=== PATIENT | male | born 1945 | race Caucasian/White ===

== ENCOUNTER 2017-03-22 04:11 | Inpatient (IN) | payer MEDICARE, OTHER ==
[2017-03-22] VITALS (12 sets, daily range): BP systolic 98–129; BP diastolic 60–79; PULSE 50–130; RESP 18–20; TEMP 97.7–98.6; O2SAT 96–99
[~2017-03-22 04:11] MED LIST: ACID REFLUX MED; ASPI81 PO
[2017-03-22] MEDS ORDERED: SODIUM CHLORID 0.9% 500 ML INJ 500 ML IV ONE (04:30)
[2017-03-22] MEDS ORDERED: SODIUM CHLORIDE 0.9% FLUSH 5 ML FLUSH IV FLUSH PRN (04:45)
[2017-03-22] MEDS ORDERED: DILTIAZEM INJ 125 MG in SODIUM CHLORIDE 0.9% INJ 100 ML IV PRN (04:45)
[2017-03-22] MEDS ORDERED: ASPIRIN 81 MG CHEW TAB CHEW ONE (04:45)
[2017-03-22 04:54] LABS: BASOPHIL # 0.1 TH/MM3 (0-0.2); BASOPHIL % 0.7 % (0.0-2.0); EOSINOPHIL # 0.5 TH/MM3 (0-0.4); EOSINOPHIL % 6.7 % (0.0-4.0); HEMATOCRIT 43.8 % (39.0-51.0); HEMO FLAGS DIFF FINAL; LYMPH % 25.1 % (9.0-44.0); LYMPHOCYTE # 1.8 TH/MM3 (1.0-4.8); MEAN CELL VOLUME 90.6 FL (80.0-100.0); MEAN CORPUSCULAR HEMOGLOBIN 30.2 PG (27.0-34.0); MEAN CORPUSCULAR HGB CONC 33.3 % (32.0-36.0); MONO % 9.6 % (0.0-8.0); NEUT % 57.9 % (16.0-70.0); PLATELET COUNT 240 TH/MM3 (150-450); RED BLOOD COUNT 4.84 MIL/MM3 (4.50-5.90); RED CELL DISTRIBUTION WIDTH 13.4 % (11.6-17.2)
[2017-03-22 05:06] LABS: ANION GAP 9 MEQ/L (5-15); AST (GOT) 20 U/L (15-37); BICARBONATE 26.1 MEQ/L (21.0-32.0); BLOOD UREA NITROGEN 25 MG/DL (7-18); CHLORIDE 106 MEQ/L (98-107); GLOMERULAR FILTRATION RATE 83 ML/MIN (>89); POTASSIUM 3.2 MEQ/L (3.5-5.1); SODIUM (NA) 141 MEQ/L (136-145)
[2017-03-22 05:07] LABS: ALT (GPT) 23 U/L (12-78)
--- NOTE | 2017-03-22 05:13 | PD ---
HPI Chief Complaint: Respiratory Symptoms Time Seen by Provider: 04:21 Travel History International Travel<30 days: No Contact w/Intl Traveler<30days: No Traveled to known affect area: No History of Present Illness HPI The patient is a 72 year old male who presents to the [facility] emergency department with a history of awakening at 3 AM with palpitations, left jaw pain , and shortness of breath. The patient reports that he felt like his heart was racing. The patient reports that he normally takes a baby aspirin daily. When he awoke with this he did take his baby aspirin early. The patient denies having any prior history of or tarry artery disease, congestive heart failure, or irregular heartbeat. The patient reports that he has had a stress test done a few years ago which was reportedly unremarkable. The patient denies having any nausea associated with this. He denies having any diaphoresis. On ambulance services arrival the patient's heart rate was noted to be in the 170s , his blood pressure systolic was in the 80s. IV access was obtained and the patient was given an additional aspirin 81 mg along with Cardizem 20 mg IV. The patient's blood pressure improved to systolic of 120, heart rate went down into the 80s to 90s. The patient reported that the jaw pain was resolving. He reports that the shortness of breath has resolved. On review of systems, the patient denies having any recent fevers, fever, cough, congestion, neck pain, chest pain, abdominal pain, vomiting, diarrhea, new urinary symptoms, or neurologic symptoms. PFSH Past Medical History Narrative Medical The patient's past medical history is significant for acid reflux, history of prostate cancer, history of melanoma Blood Disorders: No Cancer: Yes (prostate) Cardiac Catheterization: No Cardiovascular Problems: No High Cholesterol: No Congestive Heart Failure: No Cerebrovascular Accident: Yes Diabetes: No Diminished Hearing: No Endocrine: No GERD: Yes Hypertension: Yes Immune Disorder: No Past Surgical History Narrative Surgical The patient's past surgical history is significant for prostatectomy, melanoma resection, shrapnel removal from his elbow. AICD: No Coronary Artery Bypass Graft: No Genitourinary Surgery: Yes Pacemaker: No Other Surgery: Yes (METAL REMOVED FROM ARM) Social History Alcohol Use: No Tobacco Use: No Substance Use: No Allergies-Medications (Allergen,Severity, Reaction): Coded Allergies: Sulfa (Sulfonamide Antibiotics) (Unverified Allergy, Severe, 03/22/17) UNKNOWN REACTION penicillin G (Unverified Allergy, Severe, 03/22/17) RASH Reported Meds & Prescriptions Reported Meds & Active Scripts Active Reported Aspirin 81 Mg Chew 81 Mg CHEW DAILY [Acid Reflux Med] Review of Systems Except as stated in HPI: all other systems reviewed are Neg General / Constitutional: No: Fever Eyes: No: Visual changes HENT: No: Headaches Cardiovascular: Positive: Palpitations, Tachycardia, Claudication, No: Chest Pain or Discomfort Respiratory: Positive: Shortness of Breath Gastrointestinal: No: Abdominal Pain Genitourinary: No: Dysuria Musculoskeletal: No: Pain Skin: No Rash Neurologic: No: Weakness Psychiatric: No: Depression Endocrine: No: Polydipsia Hematologic/Lymphatic: No: Easy Bruising Physical Exam Narrative General: The patient is a well-developed well-nourished male in no acute distress. Head and Neck exam: Head is normocephalic atraumatic. Eyes: EOMI, pupils are equal round and reactive to light. Nose: Midline septum with pink mucous membranes Mouth: Dentition unremarkable. Moist mucus membranes. Posterior oropharynx is not erythematous. No tonsillar hypertrophy. Uvula midline. Airway patent. Neck: No palpable lymphadenopathy. No nuchal rigidity. No thyromegaly. Cardiovascular: Irregularly irregular without murmurs, gallops, or rubs. Atrial fibrillation is noted on the monitor. Lungs: Clear to auscultation bilaterally. No wheezes, rhonchi, or rales. Abdomen: Soft, without tenderness to palpation in all 4 quadrants of the abdomen. No guarding, rebound, or rigidity. Normal bowel sounds are audible. No tenderness on palpation of McBurney's point. Extremities: No clubbing, cyanosis, or edema. 2+ pulses in all 4 extremities. No calf tenderness on palpation. Back: No costovertebral angle tenderness to palpation. Neurologic Exam: Grossly nonfocal. Skin Exam: No rash noted. Intact skin that is warm and dry. Data Data Last Documented VS Vital Signs Date Time Temp Pulse Resp B/P (MAP) Pulse Ox O2 Delivery O2 Flow Rate FiO2 03/22/17 06:18 95 18 125/79 (94) 99 Nasal Cannula 2.00 03/22/17 04:13 98.0 Orders Orders Electrocardiogram (03/22/17 04:22) Complete Blood Count With Diff (03/22/17 04:22) Comprehensive Metabolic Panel (03/22/17 04:22) Creatine Kinase (Cpk) (03/22/17 04:22) Ckmb (Isoenzyme) Profile (03/22/17 04:22) Troponin I (03/22/17 04:22) B-Type Natriuretic Peptide (03/22/17 04:22) Prothrombin Time / Inr (Pt) (03/22/17 04:22) Act Partial Throm Time (Ptt) (03/22/17 04:22) Lipase (03/22/17 04:22) Magnesium (Mg) (03/22/17 04:22) Thyroid Stimulating Hormone (03/22/17 04:22) Chest, Single Ap (03/22/17 04:22) Iv Access Insert/Monitor (03/22/17 04:22) Ecg Monitoring (03/22/17 04:22) Oximetry (03/22/17 04:22) Sodium Chlorid 0.9% 500 Ml Inj (Ns 500 M (03/22/17 04:30) Aspirin Chew (Aspirin Chew) (03/22/17 04:45) Diltiazem Inj (Cardizem Inj) (03/22/17 04:45) Sodium Chloride 0.9% Flush (Ns Flush) (03/22/17 04:45) CKMB (03/22/17 04:25) CKMB% (03/22/17 04:25) Potassium Chloride (Kcl) (03/22/17 06:30) Place In Observation (03/22/17 ) Vital Signs (Adult) Q4H (03/22/17 06:29) Activity Oob With Assistance (03/22/17 06:29) Yard Labor Supervisor / Telemetry .CONTINUOUS (03/22/17 06:29) Diet Heart Healthy (03/22/17 Breakfast) Sodium Chloride 0.9% Flush (Ns Flush) (03/22/17 06:30) Sodium Chloride 0.9% Flush (Ns Flush) (03/22/17 09:00) Basic Metabolic Panel (Bmp) (03/23/17 06:00) Complete Blood Count With Diff (03/23/17 06:00) Creatine Kinase (Cpk) (03/22/17 10:25) Creatine Kinase (Cpk) (03/22/17 16:25) Troponin I (03/22/17 10:25) Troponin I (03/22/17 16:25) Electrocardiogram (03/22/17 10:25) Electrocardiogram (03/22/17 16:25) Naloxone Inj (Narcan Inj) (03/22/17 06:30) Admit Order (Ed Use Only) (03/22/17 06:40) Labs Laboratory Tests Test 03/22/17 04:25 White Blood Count 7.0 TH/MM3 Red Blood Count 4.84 MIL/MM3 Hemoglobin 14.6 GM/DL Hematocrit 43.8 % Mean Corpuscular Volume 90.6 FL Mean Corpuscular Hemoglobin 30.2 PG Mean Corpuscular Hemoglobin Concent 33.3 % Red Cell Distribution Width 13.4 % Platelet Count 240 TH/MM3 Mean Platelet Volume 8.1 FL Neutrophils (%) (Auto) 57.9 % Lymphocytes (%) (Auto) 25.1 % Monocytes (%) (Auto) 9.6 % Eosinophils (%) (Auto) 6.7 % Basophils (%) (Auto) 0.7 % Neutrophils # (Auto) 4.0 TH/MM3 Lymphocytes # (Auto) 1.8 TH/MM3 Monocytes # (Auto) 0.7 TH/MM3 Eosinophils # (Auto) 0.5 TH/MM3 Basophils # (Auto) 0.1 TH/MM3 CBC Comment DIFF FINAL Differential Comment Prothrombin Time 11.4 SEC Prothromb Time International Ratio 1.0 RATIO Activated Partial Thromboplast Time 24.0 SEC Blood Urea Nitrogen 25 MG/DL Creatinine 0.90 MG/DL Random Glucose 75 MG/DL Total Protein 6.3 GM/DL Albumin 3.6 GM/DL Calcium Level 8.5 MG/DL Magnesium Level 2.0 MG/DL Alkaline Phosphatase 39 U/L Aspartate Amino Transf (AST/SGOT) 20 U/L Alanine Aminotransferase (ALT/SGPT) 23 U/L Total Bilirubin 1.0 MG/DL Sodium Level 141 MEQ/L Potassium Level 3.2 MEQ/L Chloride Level 106 MEQ/L Carbon Dioxide Level 26.1 MEQ/L Anion Gap 9 MEQ/L Estimat Glomerular Filtration Rate 83 ML/MIN Total Creatine Kinase 267 U/L Creatine Kinase MB 4.6 NG/ML Troponin I 0.05 NG/ML B-Type Natriuretic Peptide 38 PG/ML Lipase 431 U/L Thyroid Stimulating Hormone 3rd Gen 2.250 uIU/ML MDM Medical Decision Making Medical Screen Exam Complete: Yes Emergency Medical Condition: Yes Medical Record Reviewed: Yes Differential Diagnosis A. fib with RVR, versus acute coronary syndrome, versus congestive heart failure Narrative Course During the course of the patients emergency department visit, the patients history, examination, and differential diagnosis were reviewed with the patient. The patient had IV access obtained and blood work sent for analysis. The patient was placed on a property assessment monitor with oximetry and blood pressure monitoring. An ECG was done. The patient has an ECG that shows a heart rate of 77, atrial fibrillation is noted. No acute ST segment elevation or depression., T waves are inverted in V1. The patient was initially provided an additional 162 mg of aspirin by mouth. The the patient will be started on a Cardizem drip that this heart rate consistently goes above 100 again. The patients laboratory studies were reviewed and remarkable for a white count 7 , hemoglobin 14.6, platelets 240 with monocytes 9.6, CMP is remarkable for potassium of 3.2 which was supplemented orally with 20 mEq of potassium chloride , BUN 25, GFR of 83, alkaline phosphatase is 39, CPK 267 with a CK-MB of 4.6, troponin I is 0.05, BNP is 38, troponin I total protein is 6.3, lipase 431, TSH 2.25, PT 11.4, PTT 24 Radiology logy studies were reviewed and remarkable for a chest x-ray that shows no acute cardiopulmonary disease. The patients results were discussed with the patient, including the plan of care. I explained that further testing and/ or monitoring is indicated based on the patients history, examination, and/ or laboratory findings. Therefore, I recommended admission for additional evaluation. The patient expressed understanding and was agreeable with this plan. The patient was admitted to the hospital in stable condition and [facility] Physician Communication Physician Communication The patient's case was discussed with Dr. Abreu who did agree to admit the patient for further evaluation and treatment at this time. Diagnosis Primary Impression: New onset atrial fibrillation Additional Impression: Chest pain, rule out acute myocardial infarction Admitting Information Admitting Physician Requests: Admit Theresa Cobb MD Mar 22, 2017 05:13
[2017-03-22 05:14] LABS: PROTHROMBIN TIME - PATIENT 11.4 SEC (9.8-11.6)
[2017-03-22 05:17] LABS: ALKALINE PHOSPHATASE 39 U/L (45-117); CREATINE KINASE 267 U/L (39-308)
[2017-03-22 05:29] LABS: CKMB 4.6 NG/ML (0.5-3.6)
--- NOTE | 2017-03-22 05:29 | RADRPT ---
EXAM DATE/TIME: 03/22/2017 05:14 [place] COMPARISON: No previous studies available for comparison. INDICATIONS : Chest pain. MEDICAL HISTORY : None. SURGICAL HISTORY : None. ENCOUNTER: Initial ACUITY: 1 day PAIN SCORE: 5/10 LOCATION: Bilateral chest FINDINGS: A single view of the chest demonstrates the lungs to be symmetrically aerated without evidence of mas s, infiltrate or effusion. The cardiomediastinal contours are unremarkable. Osseous structures are intact. CONCLUSION: 1. No acute cardiopulmonary disease. Singh Briones MD on March 22, 2017 at 5:27 Board Certified Radiologist. This report was verified electronically.
[2017-03-22] MEDS ORDERED: ASPI81CH CHEW (06:17)
[2017-03-22] MEDS ORDERED: NALOXONE HCL 0.4 MG/ML AMP IV PRN (06:30)
[2017-03-22] MEDS ORDERED: SODIUM CHLORIDE 0.9% FLUSH 10 ML FLUSH IV FLUSH PRN (06:30)
[2017-03-22] MEDS ORDERED: POTASSIUM CHLORIDE 20 MEQ CONTROLLED RELEASE TAB PO ONE (06:30)
[2017-03-22] MEDS: SODIUM CHLORIDE 0.9% FLUSH 10 ML FLUSH IV FLUSH SCH ×2 (09:00→22:20)
[2017-03-22] MEDS ORDERED: MORPHINE SULFATE 4 MG/ML INJ IV PUSH PRN (09:30)
--- NOTE | 2017-03-22 09:41 | HHI.HP ---
HPI Service [facility] Primary Care Physician Unknown Admission Diagnosis New onset afib, cp r/o mi Diagnoses: Chief Complaint: Shortness of breathing, jaw pain and left arm tingling Travel History International Travel<30 Days: No Contact w/Intl Traveler <30 Da: No Traveled to Known Affected Are: No History of Present Illness 72-year-old male with a past medical history of TIA who presented with abrupt shortness of breathing, jaw pain radiating to the left arm. Patient stated that he woke up at 3 AM with these symptoms and so called the ambulance. He stated that after he was given a dose of Cardizem symptoms improved drastically. Patient denies any chest pain. At the moment he stated that his only symptoms are little tingling in his left arm. During examination patient heart rate varies from 120s to the 130s. Cardizem at 5 and I asked the nurse to increase gtt dosage at the bedside. Patient stated that he is on aspirin due to "mini stroke." He had a nuclear stress test done in 2011 which was negative. Otherwise patient stated he is very active and healthy. all other review systems reviewed negative. Past Family Social History Past Medical History TIA GERD History of prostate cancer Past Surgical History Melanoma removal Medal placement in his right arm secondary to injury during combat Reported Medications Aspirin 81 Mg Chew 81 Mg CHEW DAILY [Acid Reflux Med] Allergies: Coded Allergies: Sulfa (Sulfonamide Antibiotics) (Unverified Allergy, Severe, 03/22/17) UNKNOWN REACTION penicillin G (Unverified Allergy, Severe, 03/22/17) RASH Active Ordered Medications Current Medications Sodium Chloride 500 ml @ 500 mls/hr BOLUS ONCE IV Last administered on 04:33; Start 03/22/17 at 04:30; Stop 03/22/17 at 05:29; Status DC Aspirin (Aspirin Chew) 162 mg ONCE ONCE CHEW Last administered on 03/22/17 05: 42; Start 03/22/17 at 04:45; Stop 03/22/17 at 04:46; Status DC Diltiazem HCl 125 mg/Sodium Chloride 125 ml @ 5 mls/hr TITRATE PRN IV tachycardia Last administered on 03/22/17 07:41; Start 03/22/17 at 04:45 IV Flush (NS Flush) 2 ml UNSCH PRN IV FLUSH FLUSH AFTER USING IV ACCESS; Start 03/22/17 at 04:45; Stop 03/22/17 at 06:43; Status DC Potassium Chloride (KCl) 20 meq ONCE ONCE PO Last administered on 03/22/17 07: 40; Start 03/22/17 at 06:30; Stop 03/22/17 at 06:31; Status DC Sodium Chloride (NS Flush) 2 ml UNSCH PRN IV FLUSH FLUSH AFTER USING IV ACCESS ; Start 03/22/17 at 06:30 Sodium Chloride (NS Flush) 2 ml BID IV FLUSH Last administered on 03/22/17 09: 00; Start 03/22/17 at 09:00 Naloxone HCl (Narcan Inj) 0.4 mg UNSCH PRN IV SEE LABEL COMMENTS; Start at 06:30 Nitroglycerin (Nitroglycerin 2% Oint) 0.5 inch Q6HR TOPICAL ; Start 03/22/17 at 09:30; Status UNV Morphine Sulfate (Morphine Inj) 2 mg Q3H PRN IV PUSH pain 3-10; Start 03/22/17 at 09:30; Status UNV Family History Patient stated his father had diabetes otherwise all other family members are healthy with no medical conditions. Social History Denies any tobacco, alcohol, or illicit drug use. Physical Exam Vital Signs Vital Signs Date Time Temp Pulse Resp B/P (MAP) Pulse Ox O2 Delivery O2 Flow Rate FiO2 03/22/17 09:06 117 20 122/72 (89) 98 Nasal Cannula 2.00 03/22/17 07:47 130 18 103/71 (82) 98 Nasal Cannula 03/22/17 07:41 130 103/71 03/22/17 06:18 95 18 125/79 (94) 99 Nasal Cannula 2.00 03/22/17 04:25 18 99 Nasal Cannula 2.00 03/22/17 04:13 98.0 87 18 118/68 (85) 99 Physical Exam GENERAL: This is a well-nourished, well-developed patient, in no apparent distress. SKIN: No rashes, ecchymoses or lesions. Cool and dry. HEAD: Atraumatic. Normocephalic. No temporal or scalp tenderness. EYES: Pupils equal round and reactive. Extraocular motions intact. No scleral icterus. No injection or drainage. ENT: Nose without bleeding, purulent drainage or septal hematoma. Throat without erythema, tonsillar hypertrophy or exudate. Uvula midline. Airway patent. NECK: Trachea midline. No JVD or lymphadenopathy. Supple, nontender, no meningeal signs. CARDIOVASCULAR: Irregular rate and irregular rhythm without murmurs, gallops, or rubs. RESPIRATORY: Clear to auscultation. Breath sounds equal bilaterally. No wheezes , rales, or rhonchi. GASTROINTESTINAL: Abdomen soft, non-tender, nondistended. No hepato-splenomegaly , or palpable masses. No guarding. MUSCULOSKELETAL: Extremities without clubbing, cyanosis, or edema. No joint tenderness, effusion, or edema noted. No calf tenderness. Negative Homans sign bilaterally. NEUROLOGICAL: Awake and alert. Cranial nerves II through XII intact. Motor and sensory grossly within normal limits. Five out of 5 muscle strength in all muscle groups. Normal speech. Laboratory Laboratory Tests Test 03/22/17 04:25 White Blood Count 7.0 Red Blood Count 4.84 Hemoglobin 14.6 Hematocrit 43.8 Mean Corpuscular Volume 90.6 Mean Corpuscular Hemoglobin 30.2 Mean Corpuscular Hemoglobin Concent 33.3 Red Cell Distribution Width 13.4 Platelet Count 240 Mean Platelet Volume 8.1 Neutrophils (%) (Auto) 57.9 Lymphocytes (%) (Auto) 25.1 Monocytes (%) (Auto) 9.6 Eosinophils (%) (Auto) 6.7 Basophils (%) (Auto) 0.7 Neutrophils # (Auto) 4.0 Lymphocytes # (Auto) 1.8 Monocytes # (Auto) 0.7 Eosinophils # (Auto) 0.5 Basophils # (Auto) 0.1 CBC Comment DIFF FINAL Differential Comment Prothrombin Time 11.4 Prothromb Time International Ratio 1.0 Activated Partial Thromboplast Time 24.0 Blood Urea Nitrogen 25 Creatinine 0.90 Random Glucose 75 Total Protein 6.3 Albumin 3.6 Calcium Level 8.5 Magnesium Level 2.0 Alkaline Phosphatase 39 Aspartate Amino Transf (AST/SGOT) 20 Alanine Aminotransferase (ALT/SGPT) 23 Total Bilirubin 1.0 Sodium Level 141 Potassium Level 3.2 Chloride Level 106 Carbon Dioxide Level 26.1 Anion Gap 9 Estimat Glomerular Filtration Rate 83 Total Creatine Kinase 267 Creatine Kinase MB 4.6 Troponin I 0.05 B-Type Natriuretic Peptide 38 Lipase 431 Thyroid Stimulating Hormone 3rd Gen 2.250 Result Diagram: 03/22/1742403/22/17424 Imaging Last Impressions Chest X-Ray 03/22/17421 Signed Impressions: Service Date/Time: Wednesday, March 22, 2017 05:14 - CONCLUSION: 1. No acute cardiopulmonary disease. MD Kelechi Farrell VTE Risk Assessment Kelechi VTE Risk Assessment: Mod/High Risk (score >= 2) Caprini Risk Assessment Model Point Value = 1 Point Value = 2 Point Value = 3 Point Value = 5 Age 41-60 Minor surgery BMI > 25 kg/m2 Swollen legs Varicose veins or History of unexplained or recurrent spontaneous Oral contraceptives or hormone replacement Sepsis (< 1 month) Serious lung disease, including pneumonia (< 1 month) Abnormal pulmonary function Acute myocardial infarction Congestive heart failure (< 1 month) History of inflammatory bowel disease Medical patient at bed rest Age 61-74 Arthroscopic surgery Major open surgery (> 45 min) Laparoscopic surgery (> 45 min) Malignancy Confined to bed (> 72 hours) Immobilizing plaster cast Central venous access Age >= 75 History of VTE Family history of VTE Factor V Leiden Prothrombin [id number] Lupus anticoagulant Anticardiolipin antibodies Elevated serum homocysteine Heparin-induced thrombocytopenia Other congenital or acquired thrombophilia Stroke (< 1 month) Elective arthroplasty Hip, pelvis, or leg fracture Acute spinal cord injury (< 1 month) Prophylaxis Regimen Total Risk Factor Score Risk Level Prophylaxis Regimen 0-1 Low Early ambulation 2 Moderate Order ONE of the following: *Sequential Compression Device (SCD) *Heparin 5000 units SQ BID 3-4 Higher Order ONE of the following medications: *Heparin 5000 units SQ TID *Enoxaparin/Lovenox 40 mg SQ daily (WT < 150 kg, CrCl > 30 mL/min) *Enoxaparin/Lovenox 30 mg SQ daily (WT < 150 kg, CrCl > 10-29 mL/min) *Enoxaparin/Lovenox 30 mg SQ BID (WT < 150 kg, CrCl > 30 mL/min) AND/OR *Sequential Compression Device (SCD) 5 or more Highest Order ONE of the following medications: *Heparin 5000 units SQ TID (Preferred with Epidurals) *Enoxaparin/Lovenox 40 mg SQ daily (WT < 150 kg, CrCl > 30 mL/min) *Enoxaparin/Lovenox 30 mg SQ daily (WT < 150 kg, CrCl > 10-29 mL/min) *Enoxaparin/Lovenox 30 mg SQ BID (WT < 150 kg, CrCl > 30 mL/min) AND *Sequential Compression Device (SCD) Assessment and Plan Assessment and Plan This is a 72-year-old male past medical history of TIA who presented with shortness of breathing, jaw pain and left arm pain/tingling Dyspnea/jaw pain/left arm pain/tingling left arm -Found to have atrial fibrillation with RVR. Improved with a dose of Cardizem. -Will need to rule out ACS. First set of cardiac enzymes negative. Continue to trend. EKG reviewed. Will give patient nitroglycerin paste and aspirin. Must be chest pain-free. Start metoprolol until ACS is ruled out. -We will get an echo and nuclear stress test. Consult price checker. Treat atrial fibrillation with RVR as below. Atrial fibrillation with RVR -Patient was put on Cardizem drip will continue Cardizem drip. Will need to rule out ACS. Treatment as above. -Will get an echo. TSH within normal limits. Labs are reviewed. -CHADSVASC score 3 due to TIA and age. Patient educated extensively on the risks and benefits and side effects of anticoagulation preventing stroke due to increased risks of stroke. Patient stated that he would like to be anticoagulated. Recommend Eliquis but will hold Eliquis for possible procedure if cardiac workup is positive. Will give prophylaxis Lovenox and continue with aspirin since pulling out ACS. GERD -Continue home medication. Hypokalemia -Patient already given potassium. Will replenish as needed. DVT prophylaxis -Start Lovenox. Discussed Condition With patient Physician Certification 2 Midnight Certification Type: Admission for Inpatient Services Order for Inpatient Services The services are ordered in accordance with Medicare regulations or non- Medicare payer requirements, as applicable. In the case of services not specified as inpatient-only, they are appropriately provided as inpatient services in accordance with the 2-midnight benchmark. Estimated LOS (days): 2 2 days is the estimated time the patient will need to remain in the hospital, assuming treatment plan goals are met and no additional complications. Post-Hospital Plan: Veronika Gee MD Mar 22, 2017 09:41
[2017-03-22] MEDS ORDERED: METOPROLOL TARTRATE 25 MG TAB PO SCH (09:45)
[2017-03-22] MEDS ORDERED: PILL SPLITTER OTHER PRN (10:00)
[2017-03-22] MEDS: ASPIRIN EC 81 MG TABEC PO SCH (10:30)
[2017-03-22] MEDS: NITROGLYCERIN 2% OINT 1 GM PACKET TOPICAL SCH ×3 (10:30→18:05)
[2017-03-22] MEDS: ENOXAPARIN SODIUM 40 MG/0.4 ML SYRINGE SQ SCH (10:30)
[2017-03-22] MEDS: DILTIAZEM HCL 30 MG TAB PO SCH ×4 (10:49→22:19)
--- NOTE | 2017-03-22 14:37 | EKG ---
Date Performed: 03/22/2017 Time Performed: 04:19:23 PTAGE: 72 years EKG: ATRIAL FIBRILLATION ABNORMAL RHYTHM ECG PREVIOUS TRACING : 03/22/2017 04.15 Atrial fibrillation is new since the prior tracing. DOCTOR: Kirill Cobb Interpretating Date/Time 03/22/2017 14:33:37
--- NOTE | 2017-03-22 14:53 | PD.CONS ---
HPI Consult Requested By Primary Care Physician Unknown History of Present Illness 72-year-old male with a past medical history of TIA, GERD who presented with abrupt shortness of breathing, jaw pain radiating to the left arm. Patient stated that he woke up at 3 AM with these symptoms and so called the ambulance. Patient denies any chest pain. He was found to be in Afib with RVR. Cardiology consulted for further management and evaluation. Review of Systems Consitutional: DENIES: Fatigue, Fever, Chills, Weight gain, Weight loss Eyes: DENIES: Amaurosis Fugax, Change in vision HEENT: DENIES: Lightheadedness, Change in hearing Respiratory: DENIES: See HPI, Cough, Snoring, Shortness of breath, Wheezing, Sputum production Cardiovascular: COMPLAINS OF: Palpitations, DENIES: See HPI, Chest pain, Syncope, Tachycardia Gastrointestinal: DENIES: Nausea, Vomiting, Change in bowel habits, Reflux, Bloody stools, Melena Genitourinary: DENIES: Urinary incontinence, Difficulty voiding Integumentary: DENIES: Rash Neurologic: DENIES: Tingling or numbness, Memory problems, Poor Balance, Stroke symptoms Musculoskeletal: DENIES: Joint pain, Muscle pain, Limited range of motion, Back pain Psychiatric: DENIES: Anxiety, Depression, Sleep disturbances Hematologic: DENIES: Bruising tendencies, Bleeding tendencies Endocrine: DENIES: Weight gain, Weight loss, Thyroid disease Past Family Social History Allergies: Coded Allergies: Sulfa (Sulfonamide Antibiotics) (Unverified Allergy, Severe, 03/22/17) UNKNOWN REACTION penicillin G (Unverified Allergy, Severe, 03/22/17) RASH Past Medical History TIA GERD History of prostate cancer Past Surgical History Melanoma removal Medal placement in his right arm secondary to injury during combat Reported Medications Reported Meds & Active Scripts Active Reported Aspirin 81 Mg Chew 81 Mg CHEW DAILY [Acid Reflux Med] Active Ordered Medications Current Medications Medications (Trade) Dose Ordered Sig/[place] Route Start Time Stop Time Status Last Admin Diltiazem HCl 125 mg/Sodium Chloride 125 ml @ 5 mls/hr TITRATE PRN IV 03/22/17 04:45 03/22/17 07:41 (NS Flush) 2 ml UNSCH PRN IV FLUSH 03/22/17 06:30 (NS Flush) 2 ml BID IV FLUSH 03/22/17 09:00 03/22/17 09:00 (Narcan Inj) 0.4 mg UNSCH PRN IV 03/22/17 06:30 (Nitroglycerin 2% Oint) 0.5 inch Q6HR TOPICAL 03/22/17 09:30 03/22/17 10:30 (Morphine Inj) 2 mg Q3H PRN IV PUSH 03/22/17 09:30 (Ecotrin Ec) 81 mg DAILY PO 03/22/17 09:30 03/22/17 10:30 (Cardizem) 30 mg QID PO 03/22/17 09:30 03/22/17 10:49 (Lopressor) 12.5 mg Q12HR PO 03/22/17 09:45 03/22/17 10:30 (Lovenox Inj) 40 mg Q24H SQ 03/22/17 10:00 03/22/17 10:30 (Pill Splitter) 1 ea UNSCH PRN OTHER 03/22/17 10:00 Physical Exam Vital Signs Vital Signs Date Time Temp Pulse Resp B/P (MAP) Pulse Ox O2 Delivery O2 Flow Rate FiO2 03/22/17 12:30 98 20 129/74 (92) 99 03/22/17 09:06 117 20 122/72 (89) 98 Nasal Cannula 2.00 03/22/17 07:47 130 18 103/71 (82) 98 Nasal Cannula 03/22/17 07:41 130 103/71 03/22/17 06:18 95 18 125/79 (94) 99 Nasal Cannula 2.00 03/22/17 04:25 18 99 Nasal Cannula 2.00 03/22/17 04:13 98.0 87 18 118/68 (85) 99 Physical Exam GENERAL: Well-nourished, well-developed patient. SKIN: Warm and dry. HEAD: Normocephalic. EYES: No scleral icterus. No injection or drainage. NECK: Supple, trachea midline. No JVD or lymphadenopathy. CARDIOVASCULAR: Irr Irr NO murmurs, gallops, or rubs. RESPIRATORY: Breath sounds equal bilaterally. No accessory muscle use. GASTROINTESTINAL: Abdomen soft, non-tender, nondistended. EXTREMITIES: No cyanosis, or edema. NEUROLOGICAL: Awake, alert, and oriented x 3. Non-focal. Laboratory Laboratory Tests Test 03/22/17 04:25 03/22/17 10:15 White Blood Count 7.0 Red Blood Count 4.84 Hemoglobin 14.6 Hematocrit 43.8 Mean Corpuscular Volume 90.6 Mean Corpuscular Hemoglobin 30.2 Mean Corpuscular Hemoglobin Concent 33.3 Red Cell Distribution Width 13.4 Platelet Count 240 Mean Platelet Volume 8.1 Neutrophils (%) (Auto) 57.9 Lymphocytes (%) (Auto) 25.1 Monocytes (%) (Auto) 9.6 Eosinophils (%) (Auto) 6.7 Basophils (%) (Auto) 0.7 Neutrophils # (Auto) 4.0 Lymphocytes # (Auto) 1.8 Monocytes # (Auto) 0.7 Eosinophils # (Auto) 0.5 Basophils # (Auto) 0.1 CBC Comment DIFF FINAL Differential Comment Prothrombin Time 11.4 Prothromb Time International Ratio 1.0 Activated Partial Thromboplast Time 24.0 Blood Urea Nitrogen 25 Creatinine 0.90 Random Glucose 75 Total Protein 6.3 Albumin 3.6 Calcium Level 8.5 Magnesium Level 2.0 Alkaline Phosphatase 39 Aspartate Amino Transf (AST/SGOT) 20 Alanine Aminotransferase (ALT/SGPT) 23 Total Bilirubin 1.0 Sodium Level 141 Potassium Level 3.2 Chloride Level 106 Carbon Dioxide Level 26.1 Anion Gap 9 Estimat Glomerular Filtration Rate 83 Total Creatine Kinase 267 265 Creatine Kinase MB 4.6 Troponin I 0.05 0.25 B-Type Natriuretic Peptide 38 Lipase 431 Thyroid Stimulating Hormone 3rd Gen 2.250 Result Diagram: 03/22/1742403/22/17424 Imaging Last Impressions Chest X-Ray 03/22/17421 Signed Impressions: Service Date/Time: Wednesday, March 22, 2017 05:14 - CONCLUSION: 1. No acute cardiopulmonary disease. Singh Briones MD Assessment and Plan Problem List: (1) New onset atrial fibrillation ICD Codes: I48.91 - Unspecified atrial fibrillation Status: Acute Plan: 72 y/o M with cardiac risk factors HTN and Age admitted with chest pain and elevated troponin. Troponin trending up and afib better control. Given CAD risk factors and symptoms LHC is recommend for CAD stratification. Risk benefits of LHC/PCI including but not limited to neurovascular trauma, bleeding, JEN, stoke , emergent CABG and have been explain to the patient.; He understand risk and is willing to proceed. Regarding atrial fibrillation he will need rate control and OAC given CHADS2 >2. Plan: Keep NPO for C today. (2) Chest pain, rule out acute myocardial infarction ICD Codes: R07.9 - Chest pain, unspecified Status: Acute Singleton-Adi Segura MD Mar 22, 2017 14:53
[2017-03-22] MEDS ORDERED: IOHEXOL 350 MG/ML 50 ML BTL (for Cath Lab) OTHER ONE (15:40)
[2017-03-22] MEDS ORDERED: HEPARIN-NS/PF INJ 500 ML ONE (15:58)
[2017-03-22] MEDS ORDERED: HEPARIN SODIUM - IV 10,000 UNITS/10 ML VIAL ONE (16:08)
[2017-03-22] MEDS ORDERED: ACETAMINOPHEN 325 MG TAB PO ONE (18:00)
--- NOTE | 2017-03-22 20:15 | MA ---
cc: EVERETTJOSE Valencia DATE 03/22/2017 DATE OF 1945 PROCEDURE PERFORMED 1. Left heart catheterization. 2. Selective right and left coronary angiography. 3. Left ventriculogram. INDICATION [id number] MA / angina. DESCRIPTION OF PROCEDURE Consent signed. The patient was prepped and draped in the usual sterile fashion. Using 1% lidocaine for local anesthesia and a micropuncture kit a 5- [place] sheath was inserted into the right common femoral artery. Right common femoral artery angiography was performed to confirm position of the sheath. Then selective right and left coronary angiography was performed with a JR-4 and JL-4 diagnostic catheters. Angiography was taken in multiple views. Then an angled pigtail was introduced to the ventricle over a wire. This was followed by pressure recordings, left ventriculogram and pullback. The patient tolerated the procedure well without complications. Estimated blood loss less than 30 mL. Total contrast used 70 mL. The right groin access site was closed with a TR band. RESULTS LEFT VENTRICLE The left ventricular pressure was 81/5 with an LVEDP of 9. The aortic pressure was 81/30 with a mean of 51. Left ventricle revealed symmetrically wolf ventricle with an estimated ejection fraction of 60%. There was no gradient upon pullback from the left ventricle to aorta. ANGIOGRAPHIC RESULTS 1. Right coronary artery. The right coronary artery is a dominant vessel giving off the PDA. It is tortuous with minimal luminal irregularities, however , no significant obstructive disease. 2. The left main has minimal calcification for the most part, patent with CARLOS III flow was giving off the left circumflex as well as the LAD. 3. The LAD is a transapical vessel has small slow flow. The vessel has minimal luminal irregularities and patent throughout. Nonobstructive coronary artery disease. It is giving off two diagonal vessels which are small and patent. 4. The left circumflex artery is a dominant vessel giving off the PDA. It is giving off three OM vessels which are patent with CARLOS III flow and nonobstructive coronary artery disease. CONCLUSION 1. Nonobstructive coronary artery disease. 2. Preserved LV systolic function. RECOMMENDATIONS The patient will go to [facility] for post cath care. He will be treated for atrial fibrillation and he will also need primary prevention for CAD. MD JAMI Herndon/GEO /4:54 PM /7:50 PM MTDD
[2017-03-22] MEDS: DABIGATRAN ETEXILATE 150 MG CAP PO SCH (22:19)
[2017-03-23] VITALS (17 sets, daily range): BP systolic 89–139; BP diastolic 52–85; PULSE 42–75; RESP 18; TEMP 89–98.9; O2SAT 95–98
[2017-03-23] MEDS: NITROGLYCERIN 2% OINT 1 GM PACKET TOPICAL SCH ×4 (06:00→18:00)
[2017-03-23 06:43] LABS: AUTOMATED NEUTROPHIL # 5.4 TH/MM3 (1.8-7.7); BASOPHIL % 0.5 % (0.0-2.0); EOSINOPHIL # 0.2 TH/MM3 (0-0.4); EOSINOPHIL % 2.3 % (0.0-4.0); HEMATOCRIT 41.9 % (39.0-51.0); HEMO FLAGS DIFF FINAL; LYMPH % 18.9 % (9.0-44.0); LYMPHOCYTE # 1.4 TH/MM3 (1.0-4.8); MEAN CELL VOLUME 90.4 FL (80.0-100.0); MEAN CORPUSCULAR HEMOGLOBIN 31.2 PG (27.0-34.0); MEAN CORPUSCULAR HGB CONC 34.5 % (32.0-36.0); MONO % 8.3 % (0.0-8.0); PLATELET COUNT 214 TH/MM3 (150-450); RED BLOOD COUNT 4.63 MIL/MM3 (4.50-5.90); RED CELL DISTRIBUTION WIDTH 13.4 % (11.6-17.2); WHITE BLOOD COUNT 7.7 TH/MM3 (4.0-11.0)
[2017-03-23 07:05] LABS: BICARBONATE 26.4 MEQ/L (21.0-32.0); POTASSIUM 3.1 MEQ/L (3.5-5.1)
[2017-03-23 07:08] LABS: HDL CHOLESTEROL 68.9 MG/DL (40.0-60.0)
[2017-03-23] MEDS: ASPIRIN EC 81 MG TABEC PO SCH (08:40)
[2017-03-23] MEDS: DABIGATRAN ETEXILATE 150 MG CAP PO SCH (08:41)
[2017-03-23] MEDS: SODIUM CHLORIDE 0.9% FLUSH 10 ML FLUSH IV FLUSH SCH (08:41)
[2017-03-23] MEDS: DILTIAZEM HCL 30 MG TAB PO SCH ×3 (08:41→18:13)
[2017-03-23] MEDS ORDERED: POTASSIUM CHLORIDE 20 MEQ CONTROLLED RELEASE TAB PO ONE (09:30)
[2017-03-23] MEDS: ENOXAPARIN SODIUM 40 MG/0.4 ML SYRINGE SQ SCH (09:56)
--- NOTE | 2017-03-23 10:02 | HHI.PR ---
Objective Vitals Vital Signs Date Time Temp Pulse Resp B/P (MAP) Pulse Ox O2 Delivery O2 Flow Rate FiO2 03/23/17 04:00 97.6 50 18 114/59 (77) 98 03/23/17 04:00 44 03/23/17 02:00 42 03/23/17 01:00 46 03/23/17 00:00 97.7 48 18 89/52 (64) 95 03/23/17 00:00 46 03/22/17 23:00 62 03/22/17 22:00 50 03/22/17 21:00 56 03/22/17 20:00 60 03/22/17 20:00 97.7 53 20 98/60 (73) 96 03/22/17 17:00 98.6 87 18 99/62 (74) 96 03/22/17 15:38 98 20 125/68 (87) 99 Nasal Cannula 2.00 03/22/17 12:30 98 20 129/74 (92) 99 I/O 03/22/17 03/22/17 03/22/17 03/23/17 03/23/17 03/23/17 06:59 14:59 22:59 06:59 14:59 22:59 Intake Total 500 ml 320 ml Output Total 3000 ml 425 ml Balance 500 ml -3000 ml -105 ml Intake Oral 320 ml IV Total 500 ml Output Urine Total 3000 ml 425 ml # Voids 1 Result Diagram: 03/23/17 0545 03/23/17 0545 A/P Assessment and Plan This is a 72-year-old male past medical history of TIA who presented with shortness of breathing, jaw pain and left arm pain/tingling Atrial fibrillation with RVR -Post Cardizem drip. Now on Cardizem by mouth 30 mg. Heart rate was in the 40s to 50s. Consider changing the dosing to 30 3 times a day. 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 -Status post cardiac catheterization showing coronary artery disease. -CHADSVASC score 3 due to TIA and age. Patient was put on Pradaxa. GERD -Continue home medication. Non-obstructing coronary artery disease -LDL 76. -Patient on aspirin. Hypokalemia -Replenish as needed. DVT prophylaxis -On Lovenox. Veronika Padilla MD Mar 23, 2017 10:02
--- NOTE | 2017-03-23 11:50 | ECHRPT ---
Indication: A-FIB CONCLUSIONS The left ventricular systolic function is normal with an estimated ejection fraction in the range of 65-70%. Trace mitral valve regurgitation. Mild sclerosis anterior leaflet. Calcification of the non-coronary cusp/ aortic valve sclerosis. The pulmonary valve is not well visualized. BP: 129 / 74 HR: 98 Rhythm: MEASUREMENTS (Male / Female) Normal Values Technical Quality: 2D ECHO LV Diastolic Diameter PLAX 4.2 cm 4.2 - 5.9 / 3.9 - 5.3 cm LV Systolic Diameter PLAX 2.5 cm IVS Diastolic Thickness 1.0 cm 0.6 - 1.0 / 0.6 - 0.9 cm LVPW Diastolic Thickness 1.0 cm 0.6 - 1.0 / 0.6 - 0.9 cm LV Relative Wall Thickness 0.5 RV Internal Dim ED PLAX 2.5 cm LVOT Diameter 2.0 cm LA Systolic Diameter LX 3.5 cm 3.0 - 4.0 / 2.7 - 3.8 cm LV Ejection Fraction MOD 4C 73.0 % LV Cardiac Index MOD 4C 4120.5 cm/minm LV Ejection Fraction 4C AL 76.3 % LV Cardiac Index 4C AL 4475.3 cm/minm M-MODE Aortic Root Diameter MM 3.4 cm AV Cusp Separation MM 1.9 cm DOPPLER AV Peak Velocity 198.0 cm/s AV Peak Gradient 15.7 mmHg AV Mean Gradient 7.0 mmHg AV Velocity Time Integral 36.7 cm LVOT Peak Velocity 135.0 cm/s LVOT Peak Gradient 7.3 mmHg LVOT Velocity Time Integral 28.6 cm LVOT Cardiac Index 4570.7 cm/minm AV Area Cont Eq vti 2.4 cm AV Area Cont Eq pk 2.1 cm MV Area PHT 2.6 cm Mitral E Point Velocity 72.1 cm/s Mitral A Point Velocity 67.6 cm/s Mitral E to A Ratio 1.1 LV E' Lateral Velocity 9.8 cm/s Mitral E to LV E' Lateral Ratio 7.4 LV E' Septal Velocity 7.5 cm/s Mitral E to LV E' Septal Ratio 9.6 PV Peak Velocity 122.0 cm/s PV Peak Gradient 6.0 mmHg FINDINGS LEFT VENTRICLE Normal left ventricular size and wall thickness. The left ventricular systolic function is normal wi th an estimated ejection fraction in the range of 65-70%. Left ventricular diastolic function parameters a re normal. RIGHT VENTRICLE Normal right ventricular size and systolic function. LEFT ATRIUM The left atrial size is normal. RIGHT ATRIUM The right atrial size is normal. ATRIAL SEPTUM Normal atrial septal thickness without atrial level shunting by limited color doppler interrogation. AORTA The aortic root and proximal ascending aorta are normal in size on limited imaging. MITRAL VALVE Trace mitral valve regurgitation. Mild sclerosis anterior leaflet. AORTIC VALVE Calcification of the non-coronary cusp/ aortic valve sclerosis. TRICUSPID VALVE Structurally normal tricuspid valve. No tricuspid valve stenosis or regurgitation. PULMONARY VALVE The pulmonary valve is not well visualized. VESSELS The inferior vena cava is normal in size. PERICARDIUM No pericardial effusion. Kirill Cobb MD (Electronically Signed) Final Date:23 March 2017 11:49
--- NOTE | 2017-03-23 13:03 | EKG ---
Date Performed: 03/22/2017 Time Performed: 10:21:11 PTAGE: 72 years EKG: ATRIAL FIBRILLATION WITH RAPID VENTRICULAR RESPONSE ABNORMAL RHYTHM ECG PREVIOUS TRACING : 03/22/2017 04.19 DOCTOR: Adi Link Interpretating Date/Time 03/23/2017 12:53:59
[2017-03-23] MEDS ORDERED: PRAD150C PO (15:45)
[2017-03-23] MEDS ORDERED: DILT31TA PO (15:45)
--- NOTE | 2017-03-23 15:45 | HHI.DCPOC ---
Discharge Care Plan Diagnosis: (1) CAD (coronary artery disease) (2) New onset atrial fibrillation Goals to Promote Your Health * To prevent worsening of your condition and complications * To maintain your health at the optimal level Directions to Meet Your Goals Take your medications as prescribed Follow your dietary instruction Follow activity as directed Keep your appointments as scheduled Take your immunizations and boosters as scheduled If your symptoms worsen call your PCP, if no PCP go to Urgent Care Center or Emergency Room Smoking is Dangerous to Your Health. Avoid second hand smoke Call the 24-hour hour crisis hotline for domestic abuse at Veronika Padilla MD Mar 23, 2017 15:45
--- NOTE | 2017-03-23 15:50 | HHI.DS ---
Discharge Summary Admission Date Mar 22, 2017 at 09:23 Discharge Date: Mar 23, 2017 Admitting Diagnosis New onset afib, cp r/o mi (1) Atrial fibrillation with RVR ICD Code: I48.91 - Unspecified atrial fibrillation Diagnosis: Principal (2) CAD (coronary artery disease) ICD Code: I25.10 - Atherosclerotic heart disease of [place] coronary artery without angina pectoris Diagnosis: Secondary Procedures see hospital course Brief History - From Admission 72-year-old male with a past medical history of TIA who presented with abrupt shortness of breathing, jaw pain radiating to the left arm. Patient stated that he woke up at 3 AM with these symptoms and so called the ambulance. He stated that after he was given a dose of Cardizem symptoms improved drastically. Patient denies any chest pain. At the moment he stated that his only symptoms are little tingling in his left arm. During examination patient heart rate varies from 120s to the 130s. Cardizem at 5 and I asked the nurse to increase gtt dosage at the bedside. Patient stated that he is on aspirin due to "mini stroke." He had a nuclear stress test done in 2011 which was negative. Otherwise patient stated he is very active and healthy. all other review systems reviewed negative. CBC/BMP: 03/23/17 0545 03/23/17 0545 Significant Findings Laboratory Tests Test 03/22/17 04:25 03/22/17 10:15 03/22/17 15:20 03/23/17 05:45 Monocytes (%) (Auto) 9.6 % (0.0-8.0) 8.3 % (0.0-8.0) Eosinophils (%) (Auto) 6.7 % (0.0-4.0) Eosinophils # (Auto) 0.5 TH/MM3 (0-0.4) Activated Partial Thromboplast Time 24.0 SEC (24.3-30.1) Blood Urea Nitrogen 25 MG/DL (7-18) 26 MG/DL (7-18) Total Protein 6.3 GM/DL (6.4-8.2) Alkaline Phosphatase 39 U/L (45-117) Potassium Level 3.2 MEQ/L (3.5-5.1) 3.1 MEQ/L (3.5-5.1) Estimat Glomerular Filtration Rate 83 ML/MIN (>89) 87 ML/MIN (>89) Creatine Kinase MB 4.6 NG/ML (0.5-3.6) Lipase 431 U/L (73-393) Troponin I 0.25 NG/ML (0.02-0.05) 0.28 NG/ML (0.02-0.05) Calcium Level 8.3 MG/DL (8.5-10.1) HDL Cholesterol 68.9 MG/DL (40.0-60.0) Imaging Last Impressions Chest X-Ray 03/22/17 [id number] Signed Impressions: Service Date/Time: Monday, March 22, 2017 05:14 - CONCLUSION: 1. No acute cardiopulmonary disease. Singh Briones MD PE at Discharge GENERAL: in NAD NECK: Supple, trachea midline. No JVD or lymphadenopathy. CARDIOVASCULAR: irregular rate and irregular rhythm without murmurs, gallops, or rubs. RESPIRATORY: Breath sounds equal bilaterally. No accessory muscle use. GASTROINTESTINAL: Abdomen soft, non-tender, nondistended. Pt update on day of discharge Follow-up for atrial fibrillation with RVR Rate is controlled with oral medication, but bradycardia in AM and overnight. off cardizem gtt. Patient is no complaints. Denied any chest pain, shortness of breathing, palpitation, lightheadedness/dizziness. Patient very anxious to go home today. d/w patient's nurse. Cardizem frequency was decreased and patient was monitor throughout the day in which his heart rate improved and was within normal limits. Hospital Course This is a 72-year-old male past medical history of TIA who presented with shortness of breathing, jaw pain and left arm pain/tingling Atrial fibrillation with RVR -Patient was initially put on the Cardizem drip -Post Cardizem drip. He was put on Cardizem but heart rate was in the 40s to 50s. Dosage was decreased in which he was monitored and heart rate was normal. 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 -CHADSVASC score 3 due to TIA and age. Patient was put on Pradaxa. GERD -Continue home medication. Non-obstructing coronary artery disease -LDL 76. -Patient on aspirin. Hypokalemia -Replenish as needed. Pt Condition on Discharge: Good Discharge Disposition: Discharge Home Discharge Time: > 30 minutes Discharge Instructions DIET: Follow Instructions for: Heart Healthy Diet Activities you can perform: Regular-No Restrictions Follow up Referrals: Cardiology - 2 Weeks with Gt Stephens MD PCP Follow-up - 1 Week New Medications: Dabigatran (Pradaxa) 150 Mg Cap 150 MG PO BID for atrial fibrillation, #60 CAP 0 Refills Diltiazem (Cardizem) 30 Mg Tab 30 MG PO TID for atrial fibrillation, #90 TAB 0 Refills Continued Medications: Aspirin (Aspirin) 81 Mg Chew 81 MG CHEW DAILY, TAB 0 Refills Veronika Padilla MD Mar 23, 2017 15:50
--- NOTE | 2017-04-03 08:41 | CATHPROC ---
NextPage HIS Report Study Information Study Number Admission Scheduled Start Study Start [id number] Mar 21 2017 10:05PM 03/22/2017 Mar 22 2017 3:34PM [place] [facility] Cardiac Catheterization Admit Source Facility Department Emergency department [facility] Physician and Clinical Staff Initial MD Link, Adi Supervisor Costuming Heidi Avalos,CIERA Recorder Chance Ram,[employer] PRESS FEEDER(BS) Scrub Mar Heath,RT(R) Scrub Tana Coronado,MARKO TECH2 Procedures Performed Procedure Location (Site) Vessel Name Coronary Angiograms LCA Left Coronary Coronary Angiograms RCA Right Coronary L Heart Cath LV Gram-hand inj. LV LV Ventricle Wire insertion Fem Art (right) Femoral Art Equipment Time Engineering Operator Description Size Mfg Part Number Used/Scraped [id number] 16:47 [employer] MYNX GRAPHIC ARTS TECHNICIAN CLOSURE DEVICE FR5 Used *[id number] TRANSDUCER, TRUWAVE [id number] 15:59 MARTIN CARRENO * Used W/STOCKCOCK *[id number]- INTRODUCER SET, 15:59 [employer]. FR 5 SC-NT-U-SST Used MICROPUNCTURE, STIFFENED *[id number] [id number] *[id number] 534-521T *[id number] [id number] *[id number] WIRE, HYDROSTEER 150CM [id number] 16:31 DAIG/[employer]. [employer] 150CM Used ANGLED GLIDE *[id number] 15:59 [employer] Clean Tech INDUSTRIES PACK, CCL CUSTOM * Used *[id number] 15:59 UR Mobile MEDICAL WIRE, 3MMJ .035 180CM 180CM Used *[id number] 15:59 NAMIC MANIFOLD, 4 PORT * Used *[id number] 15:59 NYCOMED OMNIPAQUE, 350 MG, 150ML 150ML [id number] Used [id number] 15:59 [employer] BLANKET,WARM AIR CCL * Used *[id number] 15:59 TERUMO MEDICAL SHEATH, FR5 TERUMO (10CM) FR 5 Used *[id number] Equipment Model, Serial, Lot Number and Expiration Data Description Model Number Serial Number Lot Number Expiration Date WIRE, HYDROSTEER 150CM [id number] 08-16-2019 ANGLED GLIDE History: Current Medications Medication Dosage/Unit Route Frequency Last Date/Time Taken ASA Beta Choco LOVENOX CARDIZEM History: Allergies Allergy Reaction Penicillin penicillin G History: Risk Factors Family History of Hypertension Dyslipidemia Previous LA Previous Heart Failure Premature CAD No No No No No Prior Valve Prior PCI Prior CABG Surgery No No No Cerebrovascular Peripheral Artery Chronic Lung On Dialysis Diabetes Disease Disease Disease No Yes No No No History: Symptoms/Diagnosis Selection Items SOB History: Stress Tests Stress or Imaging Studies Performed No History: Other Current Smoker No Labs Hgb (g/dl) Hct (%) WBC (l/cumm) Platelets (thousands) 11.60-17.00 35.00-51.00 4.00-11.00 150.00-450.00 14.6 43.8 7 240 Glucose (mg/dl) BUN (mg/dl) Creatinine (mg/dl) BUN:Creatinine (1:x) 74.00-106.00 7.00-18.00 0.50-1.30 10.00-20.00 75 25 0.9 27.8 Na (meq/l) K (meq/l) 136.00-145.00 3.50-5.10 141 3.2 INR (PTT:PT) 0.90-1.10 1 Troponin I (ng/ml) CPK (u/l) CPK-MB (ng/ML) 0.02-0.05 26.00-308.00 0.50-3.60 0.25 265 4.6 Medication Medication Total Dose (Bolus/Oral) Medication Total Dosage/Unit 1% XYLOCAINE 20 mL Medications (Bolus/Oral) Medication Time Given Dosage/Unit Administered By Reason 1% XYLOCAINE 03/22/2017 4:28:07 PM 20 mL Adi Link 20 mL 1% XYLOCAINE given in lab by Adi Link in Right Groin via Subcutaneous. Ordered by Adi James. Medication (Drip) Medication Time Given Dosage/Unit Concentration/Unit Diluent (ml) Solution IV Solutions 03/22/2017 3:43:36 PM 0 mL (IV) 500 NaCl .9 Patient arrived on IV Solutions in Left Antecubital via Peripheral IV. Pump/Drip Flow = 20 ml/hr usin g NaCl .9. Ordered by Adi Link. Initial Case Assessment Cardiovascular HR Rhythm NIBP Chest Pain 84 AFIB 87/47 0 Edema Present Skin color Skin None Normal Warm Dry Circulatory - Right Pulses Dorsalis Pedis Posterior Tibial Femoral 2 3 2 Scale (0,1,2,3,4,d) Circulatory - Left Pulses Dorsalis Pedis Posterior Tibial Femoral 2 3 2 Scale (0,1,2,3,4,d) Circulatory - Lower Extremities Color Lower Right Color Lower Left Normal Normal Neurological State Oriented to time-place- Alert Moves all extremities person Respiration - General Respiration Rate SpO2 (%) O2 (lpm) (B/min) 16 98 2 Final Case Assessment Cardiovascular HR Rhythm NIBP Chest Pain 84 AFIB 87/47 0 Edema Present Skin color Skin None Normal Warm Dry Circulatory - Right Pulses Dorsalis Pedis Posterior Tibial Femoral 2 3 2 Scale (0,1,2,3,4,d) Circulatory - Left Pulses Dorsalis Pedis Posterior Tibial Femoral 2 3 2 Scale (0,1,2,3,4,d) Circulatory - Lower Extremities Color Lower Right Color Lower Left Normal Normal Neurological State Oriented to time-place- Alert Moves all extremities person Respiration - General Respiration Rate SpO2 (%) O2 (lpm) (B/min) 16 98 2 Chronological Log Time Study Chronological Log 15:42:28 Patient arrived via Bed. 15:42:29 Patient Name, D.O.B, / Armband Verified By R.N. 15:42:30 Consent signed by the physician and the patient and verified by the [facility] [employer] staff. 15:42:31 Pre-op and post- op instructions given; patient acknowledges understanding of instructions. 15:42:31 Verbal Stimulation=2 Physical Stimulation=2 Airway=2 Respiration=2 TOTAL=8. (0=absent, 1=li mited, 2=present) 15:42:40 Presedation assessment performed by [facility] [employer] RN. 15:42:52 Patient has been NPO for Less than 6Hrs. 15:43:27 Skin Breakdown- 15:43:30 Patient Warmer Placed on the Table. 15:43:35 A # 20 IV was noted in the Antecubital (left). Grade = 0 Patient arrived on IV Solutions in Left Antecubital via Peripheral IV. Pump/Drip Flow = 20 ml/h r using NaCl .9. Ordered 15:43:36 by Adi Link. 15:43:36 History and physical on the chart or being dictated. Assessment: Initial Case, HR=84 BPM, Rhythm=AFIB, NIBP=87/47 mmhg, Chest Pain=0, Edema=None, Co frank=Normal, Skin = Warm, Dry Right Pulses: Sam Ped=2, Post Tib=3, Femoral=2 Left Pulses: Sam Ped=2, Post Tib=3, Femoral=2 15:43:37 Lower Right Extremities: Color=Normal Lower Left Extremities: Color=Normal Neurological: State=Alert, Ox3, CARNEY Respiration: Resp=16 B/min, SpO2=98 %, O2=2 lpm Vitals capture started with the following parameters, Patient=Adult, Interval=5 min, Initial Pr izhscj=066 mmHg, 15:49:00 Deflation Rate=5 mmHg, Cuff placed on Left Arm 15:54:27 HR=86 bpm, NIBP=91/70 mmhg, SpO2=96.0 %, Resp=18 B/min, Pain=0, Shanelle=10, Garcia=2 15:59:32 HR=83 bpm, NIBP=87/47 mmhg, SpO2=98 %, Resp=39 B/min, Pain=0, Shanelle=10, Garcia=2 16:01:00 MD arrived. 16:02:33 Bilateral groins prepped with 2% chlorhexidine, and with a 3 min. waiting time. 16:03:48 Reference ECG taken 16:05:00 FQ=903 bpm, YYFJ=329/65 mmhg, Resp=15 B/min, Pain=0, Shanelle=10, Garcia=2 16:05:33 Pressure channel 1 zeroed. 16:09:30 HR=90 bpm, QUHU=722/73 mmhg, Resp=16 B/min, Pain=0, Shanelle=10, Garcia=2 16:14:35 HR=85 bpm, MVIE=515/56 mmhg, Resp=22 B/min, Pain=0, Shanelle=10, Garcia=2 16:19:35 HR=88 bpm, NIBP=85/61 mmhg, Resp=19 B/min, Pain=0, Shanelle=10, Garcia=2 Time Out. Correct patient, correct procedure,correct physician, power injector not loaded with contrast with surgical 16:24:59 team present. Time Out Concurred by MD, individual staff in procedure 16:25:10 HR=89 bpm, NIBP=94/53 mmhg, Resp=19 B/min, Pain=0, Shanelle=10, Garcia=2 16:28:00 Case Start 20 mL 1% XYLOCAINE given in lab by Adi Link in Right Groin via Subcutaneous. Ordered b y Fariba, 16:28:07 Adi. 16:28:48 Access site was Right Femoral Artery. A INTRODUCER SET, MICROPUNCTURE, STIFFENED FR 5 was advanced into the Fem Art (right) using the 16:28:53 Percutaneous technique. A SHEATH, FR5 TERUMO (10CM) FR 5 was exchanged in the Fem Art (right). This was necessary in or courtney to minimize 16:29:19 site leakage. 16:30:18 TF=209 bpm, NIBP=73/52 mmhg, Resp=10 B/min, Pain=0, Shanelle=10, Garcia=2 Recorded Pressure: Ao, HR=82, Condition=Condition 1 16:33:06 (Aorta) Ao 86/52/65 16:34:58 HR=81 bpm, EHLB=732/56 mmhg, SpO2=98 %, Resp=23 B/min, Pain=0, Shanelle=10, Garcia=2 A JR 4.0 INFINITI CATHETER FR 5 was advanced over a wire. OMNIPAQUE, 350 MG, 150ML 150ML was us ed for 16:35:54 injections. 16:36:06 A WIRE, HYDROSTEER 150CM ANGLED GLIDE 150CM was inserted via Fem Art (right). 16:36:10 Wire removed 16:36:16 A WIRE, 3MMJ .035 180CM 180CM was inserted via Fem Art (right). 16:37:55 The RCA was injected and visualized at various angles. OMNIPAQUE, 350 MG, 150ML 150ML used . After removing the current catheter a JL 4.0 INFINITI CATHETER FR 5 was advanced over a WIRE, 3 MMJ .035 180CM 16:38:11 180CM. 16:39:37 IV=308 bpm, NIBP=95/59 mmhg, SpO2=97.0 %, Resp=14 B/min, Pain=0, Shanelle=10, Garcia=2 16:40:04 The LCA was injected and visualized at various angles. OMNIPAQUE, 350 MG, 150ML 150ML used . After removing the current catheter a PIGTAIL ANG. INFINITI CATHETER FR 5 was advanced over a W VEDA, 3MMJ .035 16:40:30 180CM 180CM. Recorded Pressure: LV, HR=98, Condition=Condition 1 16:43:35 (Left Ventricle) LV 86/0/4 16:44:07 The LV was manually injected with 5 cc's and visualized. OMNIPAQUE, 350 MG, 150ML 150ML use d. Recorded Pressure: LV, Ao, HR=93, Condition=Condition 1 16:44:18 (Left Ventricle) LV 81/5/9, (Aorta) Ao 81/30/51 16:44:36 HR=84 bpm, NIBP=88/52 mmhg, SpO2=95.0 %, Resp=15 B/min, Pain=0, Shanelle=10, Garcia=2 16:45:52 Catheter was removed Assessment: Final Case, HR=84 BPM, Rhythm=AFIB, NIBP=87/47 mmhg, Chest Pain=0, Edema=None, Col or=Normal, Skin = Warm, Dry Right Pulses: Sam Ped=2, Post Tib=3, Femoral=2 Left Pulses: Sam Ped=2, Post Tib=3, Femoral=2 16:47:14 Lower Right Extremities: Color=Normal Lower Left Extremities: Color=Normal Neurological: State=Alert, Ox3, CARNEY Respiration: Resp=16 B/min, SpO2=98 %, O2=2 lpm 16:49:33 HR=86 bpm, NIBP=93/64 mmhg, SpO2=95.0 %, Resp=18 B/min, Pain=0, Shanelle=10, Garcia=2 16:50:42 MYNX GRAPHIC ARTS TECHNICIAN CLOSURE DEVICE FR5 placement in the Fem Art (right) 16:50:54 Case End 16:53:15 No case complications noted. 16:53:16 Cine recording checked. 16:53:18 Bedside Report will be given. 16:53:23 Contrast Scanned 16:54:36 VP=121 bpm, NIBP=98/56 mmhg, SpO2=93.0 %, Resp=18 B/min, Pain=0, Shanelle=10, Garcia=2 16:59:53 Vitals capture stopped. 17:05:19 A Left Heart Cath was performed. 17:05:21 Patient moved to stretcher End Study - Contrast Media Used In Study Contrast Total Opened (mL) Total Used (mL) Total Wasted (mL) Omnipaque 40 40 0 End Study - Maximum Contrast Load Max Contrast Load (mL) 611.1 End Study - Radiation Exposure Fluoro Time (minutes) 4.6 End Study - Patient Disposition Complications Transferred To Interventional Outcome No Telemetry Bed No attempt made
== END 2017-03-23 18:40 | disposition home or self-care (01) | DRG 287 ==
LOC: NEPE 04:11 → NEDA 06:41 → OBSVTOIN 09:23 → HCIS 17:14
PROVIDERS: ADMIT Family Medicine; ATTEND Family Medicine
PROC: B2111ZZ Fluoroscopy of Multiple Coronary Arteries using Low Osmolar Contrast (ICD-10-PCS; 2017-03-22)
PROC: 4A023N7 Measurement of Cardiac Sampling and Pressure, Left Heart, Percutaneous Approach (ICD-10-PCS; 2017-03-22)
PROC: B2151ZZ Fluoroscopy of Left Heart using Low Osmolar Contrast (ICD-10-PCS; principal; 2017-03-22 14:00)
DX: I48.91 Unspecified atrial fibrillation (principal); I10 Essential (primary) hypertension; E87.6 Hypokalemia; I25.119 Atherosclerotic heart disease of native coronary artery with unspecified angina pectoris; K21.9 Gastro-esophageal reflux disease without esophagitis; Z79.82 Long term (current) use of aspirin; Z85.820 Personal history of malignant melanoma of skin; Z85.46 Personal history of malignant neoplasm of prostate
CPT/HCPCS: 71010; 80048; 80053; 80061; 82550; 82552; 83690; 83735; 83880; 84443; 84484; 85025; 85610; 85730; 93005; 93306; 93458; 96360; C1760; C1769; C1893; G0269; J1644; J1650; J7040; Q9967